=== PATIENT | male | born 1990 | race Caucasian/White ===

== ENCOUNTER 2017-05-17 19:00 | Emergency (ER) | payer BC, OTHER ==
[~2017-05-17] VITALS: Ht 190.5 cm; Wt 106.0 kg
[~2017-05-17 19:00] MED LIST: ACET-1256 PO; CHOL100027 PO; MULT-506 PO; NUTR750C PO; OMEGCAP2 PO
[2017-05-17 19:31] VITALS: Ht 190.5 cm; Wt 106.0 kg
[2017-05-17 20:00] LABS: INFLUENZA B ANTIGEN Neg for Influ B (NEG)
[2017-05-17] MEDS ORDERED: ACETAMINOPHEN 500 MG TAB PO STA (20:35)
[2017-05-17] MEDS ORDERED: IBUPROFEN 200 MG TAB PO STA (20:35)
--- NOTE | 2017-05-17 21:07 | DIAGNOSTIC IMAGING REPORT ---
CHEST 2 VIEWS ROUTINE CLINICAL HISTORY: cough fever COMPARISON STUDY: 07/03/2015 FINDINGS: The bones soft tissues and hemidiaphragms are normal. The cardiomediastinal silhouette is normal. The lungs are clear. The pulmonary vasculature is normal. IMPRESSION: Negative chest. The above report was generated using voice recognition software. It may contain grammatical, syntax or spelling errors. Electronically signed by: Humble Tolliver M.D. 05/17/2017 9:06 PM Dictated Date/Time: 05/17/2017 9:05 PM
[2017-05-17] MEDS ORDERED: AMOXICILLIN 500 MG CAP PO STA (21:31)
[2017-05-17] MEDS ORDERED: AMOXICILLIN 250 MG CAP PO ONE (21:36)
[2017-05-17] MEDS ORDERED: DEXAMETHASONE SOD INJ 4 MG/ML VIAL PO STA (21:53)
[2017-05-17] MEDS ORDERED: AMOX875T3 PO (21:59)
--- NOTE | 2017-05-17 22:00 | EMERGENCY ROOM VISIT NOTE ---
History First contact with patient: 20:25 Chief Complaint: FLU LIKE SX Stated Complaint: SORE THROAT,ELL[place],ACHES History of Present Illness The patient is a 26 year old male who presents to the Emergency Room with complaints of severe sore throat and fever that started 2 days ago. The patient particular is complaining of pain on the left side of his throat. He is having difficulty swallowing. His temperature was 102F. He tried NyQuil and ibuprofen last night and this morning are still actively with minimal relief. He has had a mild nonproductive cough. He denies any chest pain or difficulty breathing. No nausea or vomiting. His appetite has been poor. He denies any sick contacts. Review of Systems 10 system review performed and negative unless noted in HPI or below Past Medical/Surgical History Medical Problems: (1) ADHD (attention deficit hyperactivity disorder) (2) Hypertension (3) Infectious Mononucleosis Family History Cancer Diabetes Hypertension Social History Smoking Status: Never Smoker Alcohol Use: none Marital Status: single Housing Status: lives with roommate Occupation Status: student Current/Historical Medications Scheduled Amoxicillin (Amoxil), 875 MG PO BID Cholecalciferol (Vitamin D 1000 Unit), 2,000 INTER.UNIT PO DAILY Multivitamin (Multivitamin), 1 TAB PO DAILY [place] Hero-3 Fatty Acids (Fish Oil), 1 CAP PO DAILY Scheduled PRN Acetaminophen (Tylenol), 1,000 MG PO Q6 PRN for Pain Physical Exam Vital Signs Date Time Temp Pulse Resp B/P (MAP) Pulse Ox O2 Delivery O2 Flow Rate FiO2 05/17/17 22:10 37.2 90 20 140/64 95 05/17/17 21:53 37.2 05/17/17 21:10 39.3 90 20 140/64 95 Room Air 05/17/17 20:49 88 20 136/82 98 05/17/17 19:31 39.3 116 20 125/72 96 Room Air Physical Exam GENERAL: 26-year-old male, mildly ill in appearance,, in no acute distress, nondiaphoretic, well-developed well-nourished. SKIN: The skin was warm but without rashes HEAD: Normocephalic atraumatic. EYES: Conjunctivae without injection, sclerae without icterus. Extraocular movements intact. MOUTH: Mucous membranes moist. Tonsils are moderately enlarged with white exudate bilaterally. The uvula is midline. No swelling of the soft palate. Airway is patent. NECK: Supple without nuchal rigidity. Lymphadenopathy in the anterior cervical chain bilaterally. Cervical spine is nontender. No JVD. HEART: Regular rate and rhythm without murmurs gallops or rubs. LUNGS: Clear to auscultation bilaterally without wheezes, rales or rhonchi. No accessory muscle use. ABDOMEN: Positive bowel sounds x 4.Soft, nontender, without organomegaly. No guarding or rebound tenderness. MUSCULOSKELETAL: No muscle atrophy, erythema, or edema noted. Strength 5/5 throughout. NEURO: Patient was alert and oriented to person place and time. Normal sensation to touch. No focal neurological deficits. Medical Decision & Procedures Laboratory Results Test 05/17/17 19:30 Influenza Type A Antigen Neg for Influ A (NEG) Influenza Type B Antigen Neg for Influ B (NEG) Medications Administered Medications (Trade) Dose Ordered Sig/Sylvester Route Start Time Stop Time Status Last Admin Dose Admin Ibuprofen (Advil Tab) 800 mg NOW STAT PO 05/17/17 20:35 05/17/17 20:36 DC 05/17/17 20:49 800 MG Acetaminophen (Tylenol Tab) 1,000 mg NOW STAT PO 05/17/17 20:35 05/17/17 20:36 DC 05/17/17 20:35 1,000 MG Amoxicillin (Amoxil Cap) 500 mg STK-MED ONCE PO 05/17/17 21:36 05/17/17 21:37 DC 05/17/17 21:39 500 MG Dexamethasone Sodium Phosphate (Decadron Inj) 10 mg NOW STAT PO 05/17/17 21:53 05/17/17 21:54 DC 05/17/17 22:10 10 MG ED Course The patient was seen and examined He was medicated with Motrin 800 mg and Tylenol 1 g po A strep screen was performed in addition to a chest x-ray Upon reevaluation, the patient was much more comfortable. His pain was better. He was tolerating a diet. We discussed his workup. He voiced understanding, is comfortable being discharged home. He was given 1 dose of amoxicillin 500 mg po Discharge instructions were reviewed, and he was discharged in good condition Medical Decision Differential diagnosis: Bronchitis, pneumonia, strep pharyngitis, viral pharyngitis, influenza, mononucleosis, other viral syndrome This patient is a 26-year-old male that presents the emergency department with a main complaint of sore throat and fever. On exam, he was mildly ill. His tonsils were enlarged with white exudate. His rapid strep was negative. His chest x-ray does not show any signs of pneumonia. I do believe the patient has a bacterial tonsillitis. He does not have any signs of peritonsillar abscess. The patient had excellent symptomatic relief with Tylenol and Motrin in the emergency department. I believe he is stable to be discharged home. He will be given a ten-day course of amoxicillin. He was encouraged to follow-up with [facility] for recheck this week. He agrees to return to the emergency department with worsening symptoms. This chart was completed in part utilizing [employer] Speech Voice Recognition software. Attempts were made to minimize the grammatical errors, random word insertions, pronoun errors and incomplete sentences. Any formal questions or concerns about the content, text or information contained within the body of this dictation should be directly addressed to the provider for clarification. Medication Reconcilliation Current Medication List: was personally reviewed by me Blood Pressure Screening Patient's blood pressure: Normal blood pressure Impression Primary Impression: Acute bacterial tonsillitis Departure Information Dispostion Home / Self-Care Condition GOOD Prescriptions Amoxicillin (AMOXIL) 875 Mg Tab 875 MG PO BID for 10 Days, #20 TAB Prov: Kim Ca PA-C 05/17/17 Referrals No Doctor, Assigned (PCP) Patient Instructions ED Tonsillitis, [facility] Additional Instructions You have been evaluated in the emergency department for a sore throat and fever. This is likely due to tonsillitis. Please take the entire course of antibiotics It is very important to stay [id number] recommend water and sports strength. Avoid caffeine and alcohol. Ibuprofen 800 mg and/or Tylenol 1000 mg every 8 hours for fever and pain You may also alternate these medications for more effective pain relief: Ibuprofen --4 HRS--> Tylenol --4 HRS--> ibuprofen --4 HRS--> Tylenol .... Please follow-up with [facility] within the next 3-5 days for recheck Do not hesitate to return to the emergency department with any new, worsening or concerning symptoms; especially, uncontrolled fever, inability to swallow, severe headache, neck pain or difficulty breathing Work Instructions Return To Work: 2 days School Instructions Return To School: 2 days
[2017-05-17 22:10] VITALS: BP 140/64; PULSE 90; TEMP 37.2; O2SAT 95
== END 2017-05-17 22:11 | disposition home or self-care (01) ==
LOC: C.EDB 19:02 → C.EDC 22:11
DX: J03.90 Acute tonsillitis, unspecified (principal); B96.89 Other specified bacterial agents as the cause of diseases classified elsewhere; F90.9 Attention-deficit hyperactivity disorder, unspecified type; I10 Essential (primary) hypertension; Z80.9 Family history of malignant neoplasm, unspecified; Z83.3 Family history of diabetes mellitus; Z82.49 Family history of ischemic heart disease and other diseases of the circulatory system; Z79.899 Other long term (current) drug therapy